=== PATIENT | female | born 1950 | race Two or more races ===

== ENCOUNTER 2020-08-01 09:34 | Inpatient (IN) | payer OTHER ==
[~2020-08-01] VITALS: Ht 162.6 cm; Wt 68.0 kg
[~2020-08-01 09:34] MED LIST: AVALIDE 300/12.1 TAB PO; CADUET 5 MG/101 TAB PO; DOXAZOSIN MESYLA2 MG PO; METOCLOPRAMIDE H5 MG PO; PANTOPRAZOLE SO40 MG PO
[2020-08-01] MEDS ORDERED: LOSARTAN-HCTZ1 EAC2 PO (10:49)
[2020-08-01] MEDS ORDERED: CARDURA1 MG PO (10:50)
[2020-08-01] MEDS ORDERED: CARTIA XT240 MG PO (10:50)
[2020-08-01] MEDS ORDERED: LIPITOR20 MG PO (10:50)
[2020-08-01] MEDS ORDERED: METFORMIN HCL500 M3 PO (10:51)
[2020-08-01] MEDS ORDERED: FLONASE16 GM (10:51)
[2020-08-01] MEDS ORDERED: ALBUTEROL1.25 MG/3 IH (10:51)
[2020-08-08] MEDS ORDERED: OPTIVE EYE DROP15 ML (11:19)
[2020-08-08] MEDS ORDERED: BRIMONIDINE TART5 M1 (11:19)
[2020-08-08] MEDS ORDERED: DOXAZOSIN MESYLA2 MG (11:19)
[2020-08-08] MEDS ORDERED: OMEPRAZOLE20 MG (11:20)
[2020-08-08] MEDS ORDERED: FLONASE SENSIM5.9 ML (11:20)
[2020-08-08] MEDS ORDERED: ZOLPIDEM TARTRA10 MG (11:20)
[2020-08-08] MEDS ORDERED: MONTELUKAST SOD10 MG (11:20)
== END 2020-08-11 16:38 | disposition home or self-care (01) | DRG 330 ==
LOC: O/R 08-08 07:33 → SURH 08-08 07:33
PROVIDERS: ADMIT Colon & Rectal Surgery; ATTEND Colon & Rectal Surgery
PROC: 07BD4ZX Excision of Aortic Lymphatic, Percutaneous Endoscopic Approach, Diagnostic (ICD-10-PCS; 2020-08-08)
PROC: 3E0F7SF Introduction of Other Gas into Respiratory Tract, Via Natural or Artificial Opening (ICD-10-PCS; 2020-08-08)
PROC: 0DTF4ZZ Resection of Right Large Intestine, Percutaneous Endoscopic Approach (ICD-10-PCS; principal; 2020-08-08 14:45)
DX: D12.2 Benign neoplasm of ascending colon (principal); C18.0 Malignant neoplasm of cecum; I10 Essential (primary) hypertension; E11.9 Type 2 diabetes mellitus without complications; Z20.822 Contact with and (suspected) exposure to COVID-19